=== PATIENT | male | born 1980 | race African-American/Black ===

== ENCOUNTER 2020-09-06 19:29 | Emergency (ER) | payer SELFPAY ==
[~2020-09-06] VITALS: Ht 185.4 cm; Wt 111.1 kg
[2020-09-06] MEDS ORDERED: HALO5TAB12 PO (19:45)
[2020-09-06] MEDS ORDERED: DIPH50CA37 PO (19:45)
--- NOTE | 2020-09-06 19:45 | NUR ---
Dr. Lehman at bedside for MSE.
[2020-09-06] MEDS ORDERED: HALOPERIDOL 5 MG TABLET ONE (20:11)
[2020-09-06 20:14] VITALS: BP 140/80
[2020-09-06] MEDS ORDERED: HALOPERIDOL 0.5 MG TABLET PO ONE (20:15)
--- NOTE | 2020-09-06 20:15 | NUR ---
Patient cleared for discharge. Pt requested for us to contact Kenisha (Therapist) to let her know that patient was seen tonight and he got his dose of Haldol and his prescription. Written and verbal after care instructions given. Patient verbalizes understanding of instructions. Stressed follow up or return to ER for worsening s/s. Ambulated out of ER in steady gait.
== END 2020-09-06 20:15 | disposition home or self-care (01) ==
LOC: ER 19:29
DX: Z76.0 Encounter for issue of repeat prescription (principal); Z87.11 Personal history of peptic ulcer disease
CPT/HCPCS: A4663

== ENCOUNTER 2021-01-10 02:29 | Emergency (ER) | payer SELFPAY ==
[~2021-01-10] VITALS: Ht 182.9 cm; Wt 90.7 kg
[~2021-01-10 02:29] MED LIST: FAMO10TA41 PO; SULF1TAB48 PO
--- NOTE | 2021-01-10 02:40 | NUR ---
Parker jiménez in [facility] - 01/10/21 at 0240 by [id number] Patient is resting on bed in room, in distress, with his handing gaurding his abdomen c/o pain.
--- NOTE | 2021-01-10 02:40 | NUR ---
Patient resting on bed in room, c/o abdominal pain with his hand gaurding his abdomen.
--- NOTE | 2021-01-10 02:42 | NUR ---
MD Azul in room to examine patient.
--- NOTE | 2021-01-10 02:53 | NUR ---
helicopter technician in room to draw blood from patient.
--- NOTE | 2021-01-10 03:00 | NUR ---
production technician in room with patient
[2021-01-10 03:10] LABS: BASOPHILS % (AUTO) 0.9 % (0.0-2.0); EOSINOPHILS # (AUTO) 0.2 K/uL (0.0-0.7); EOSINOPHILS % (AUTO) 4.2 % (0.0-7.0); HEMATOCRIT 27.8 % (36.7-47.1); LYMPHOCYTES # (AUTO) 1.2 K/uL (20.0-40.0); LYMPHOCYTES % (AUTO) 27.9 % (20.5-51.5); MEAN CORPUSCULAR HEMOGLOBIN 24.5 uug (23.8-33.4); MEAN CORPUSCULAR HGB CONC 33 g/dL (32.5-36.3); MEAN CORPUSCULAR VOLUME 75.4 fL (73.0-96.2); MONOCYTES # (AUTO) 0.3 K/uL (2.0-10.0); MONOCYTES % (AUTO) 6.8 % (0.0-11.0); NEUTROPHILS # (AUTO) 2.5 K/uL (1.8-8.9); NEUTROPHILS % (AUTO) 60.2 % (38.5-71.5); PLATELET COUNT (AUTO) 297 K/uL (152-348); RED BLOOD CELL COUNT(AUTO) 3.69 MIL/uL (4.06-5.63); WHITE BLOOD COUNT (AUTO) 4.1 K/uL (3.6-10.2)
[2021-01-10] MEDS: MAG HYDROX/AL HYDROX/SIMETH 30 ML LIQUID UDC PO ONE (03:10)
[2021-01-10] MEDS ORDERED: LIDOCAINE VISCUS 2% 15 ML UDC ONE (03:10)
[2021-01-10] MEDS: LIDOCAINE VISCUS 2% 15 ML UDC MM ONE (03:10)
[2021-01-10] MEDS ORDERED: MAG HYDROX/AL HYDROX/SIMETH 30 ML LIQUID UDC ONE (03:10)
[2021-01-10 03:12] LABS: CREATININE 1.1 mg/dL (0.6-1.3); POTASSIUM 3.9 mmol/L (3.5-5.1)
[2021-01-10 03:18] LABS: BILIRUBIN,DIRECT 0.1 mg/dL (0.0-0.2); BILIRUBIN,TOTAL 0.3 mg/dL (0.2-1.0); TOTAL PROTEIN, SERUM 6.9 g/dL (6.4-8.2)
[2021-01-10] MEDS ORDERED: HYDR-3972 PO (03:35)
[2021-01-10] MEDS ORDERED: AMOX500C2 PO (03:38)
[2021-01-10] MEDS ORDERED: RABE20TA18 PO (03:38)
[2021-01-10] MEDS ORDERED: CLAR-45 PO (03:41)
[2021-01-10] MEDS ORDERED: TINI500T10 PO (03:41)
[2021-01-10 04:20] VITALS: BP 160/97
--- NOTE | 2021-01-10 04:20 | NUR ---
Patient discharged in stable condition. Written and verbal after care instructions given. Homeless information packet given. Patient verbalizes understanding of instructions. Stressed follow up or return to ER for worsening s/s. Patient ambulates without difficulty, received paper Rx, took all belongings.
== END 2021-01-10 04:20 | disposition home or self-care (01) ==
LOC: ER 02:37
DX: G89.29 Other chronic pain (principal); R10.10 Upper abdominal pain, unspecified; I51.7 Cardiomegaly; F15.10 Other stimulant abuse, uncomplicated; Z59.0 Homelessness; Z91.018 Allergy to other foods; R63.4 Abnormal weight loss; Z68.27 Body mass index [BMI] 27.0-27.9, adult
CPT/HCPCS: 36415; 74021; 83690; 85025; 93005; A4663

== ENCOUNTER 2021-04-29 07:10 | Emergency (ER) | payer SELFPAY ==
[~2021-04-29] VITALS: Ht 185.4 cm; Wt 95.3 kg
[~2021-04-29 07:10] MED LIST changes: +AMOX500C2 PO; +CLAR-45 PO; +HYDR-3972 PO; +RABE20TA18 PO; +TINI500T10 PO
[2021-04-29] MEDS: MORPHINE SULFATE 2 MG/1 ML DISP.SYRIN IV ONE (07:45)
[2021-04-29] MEDS ORDERED: ONDANSETRON 4 MG/2 ML VIAL ONE (07:45)
[2021-04-29] MEDS ORDERED: PIPERACILLIN/TAZOBACTAM/D5W 50 ML IV ONE (07:45)
[2021-04-29] MEDS ORDERED: MORPHINE SULFATE 4 MG/1 ML DISP.SYRIN ONE (07:45)
[2021-04-29] MEDS: PIPERACILLIN SODIUM/TAZOBACTAM 3.375 G in IV DEXTROSE 5% 50 ML IV ONE (07:45)
[2021-04-29] MEDS: ONDANSETRON 4 MG/2 ML VIAL IV ONE (07:45)
[2021-04-29] MEDS ORDERED: VANCOMYCIN IV 200 ML ONE (07:46)
[2021-04-29 07:48] LABS: BASOPHILS % (AUTO) 0.7 % (0.0-2.0); EOSINOPHILS # (AUTO) 0.1 K/uL (0.0-0.7); EOSINOPHILS % (AUTO) 1.5 % (0.0-7.0); HEMATOCRIT 29.1 % (36.7-47.1); HEMOGLOBIN 9.6 g/dL (12.5-16.3); LYMPHOCYTES # (AUTO) 1.5 K/uL (20.0-40.0); LYMPHOCYTES % (AUTO) 23.6 % (20.5-51.5); MEAN CORPUSCULAR HEMOGLOBIN 25.7 uug (23.8-33.4); MEAN CORPUSCULAR HGB CONC 33 g/dL (32.5-36.3); MEAN CORPUSCULAR VOLUME 77.8 fL (73.0-96.2); MONOCYTES # (AUTO) 0.6 K/uL (2.0-10.0); MONOCYTES % (AUTO) 9.6 % (0.0-11.0); NEUTROPHILS % (AUTO) 64.6 % (38.5-71.5); PLATELET COUNT (AUTO) 295 K/uL (152-348); RED BLOOD CELL COUNT(AUTO) 3.74 MIL/uL (4.06-5.63); WHITE BLOOD COUNT (AUTO) 6.2 K/uL (3.6-10.2)
[2021-04-29 08:00] LABS: BILIRUBIN,DIRECT 0.2 mg/dL (0.0-0.2); BILIRUBIN,TOTAL 0.8 mg/dL (0.2-1.0); CREATININE 0.9 mg/dL (0.6-1.3); POTASSIUM 3.8 mmol/L (3.5-5.1); TOTAL PROTEIN, SERUM 7.3 g/dL (6.4-8.2)
[2021-04-29] MEDS: VANCOMYCIN IV 1,000 MG in IV DEXTROSE 5% 250 ML IV ONE (08:26)
[2021-04-29] MEDS ORDERED: SULF1TAB48 PO (09:57)
[2021-04-29] MEDS ORDERED: HYDR-3980 PO ×2 (09:57→10:13)
[2021-04-29] MEDS ORDERED: CEPH500C2 PO (09:57)
--- NOTE | 2021-04-29 10:33 | NUR ---
Patient discharged to home in stable condition. Written and verbal after care instructions given. Patient verbalizes understanding of instructions. Stressed follow up or return to ER for worsening s/s. Pt was given extensive verbal ACI by regarding home care and follow up.
[2021-04-29 10:34] VITALS: BP 114/70
== END 2021-04-29 10:34 | disposition home or self-care (01) ==
LOC: ER 07:18
DX: L03.012 Cellulitis of left finger (principal); D64.9 Anemia, unspecified; E87.1 Hypo-osmolality and hyponatremia; Z59.0 Homelessness; Z88.0 Allergy status to penicillin
CPT/HCPCS: 36415; 73140; 80048; 80076; 85025; 85730; 96365; 96366; 96367; 96375; 99284; J2270; J2405; J2543; J3370; A4663